=== PATIENT | male | born 1955 | race Caucasian/White ===

== ENCOUNTER 2016-12-20 13:33 | Inpatient (IN) | payer MEDICARE ==
[2016-12-20 14:09] LABS: Hematocrit 42.3 % (42.0-52.0); Hemoglobin 14.5 gm/dL (13.5-18.0); Mean Cell Volume 88.9 fl (78-100); Mean Corpuscular Hemoglobin 30.5 pg (27-31); Mean Corpuscular Hgb Conc 34.3 g/dl (32-36); Mean Platelet Volume 10.4 fl (6.0-9.5); Neutrophil # 7.4 K/mm3 (1.3-6.0); Neutrophil % 53.5 % (42-75.0); Platelet Count 211 K/mm3 (150-450); Red Blood Count 4.76 M/mm3 (4.7-6.0); Red Cell Distribution Width 12.8 % (11.5-14.0); White Blood Count 13.8 K/mm3 (4.0-10.5)
[2016-12-20] MEDS ORDERED: DIATRIZOATE MEGLU/DIATRIZO SOD 30 ML BTL PO ONE (14:10)
[2016-12-20] MEDS ORDERED: DIATRIZOATE MEGLU/DIATRIZO SOD 30 ML BTL ONE (14:11)
[2016-12-20 14:12] LABS: Urine Bilirubin Negative (NEGATIVE); Urine Blood Negative /ul (NEGATIVE); Urine Ketone Negative (NEGATIVE); Urine Nitrite Negative (NEGATIVE); Urine Protein Negative (NEGATIVE); Urine Urobilinogen Normal (NORMAL); Urine pH 6.5 pH (5.0-7.0)
--- NOTE | 2016-12-20 14:16 | ERNOTE ---
Abdominal HPI - General Chief Complaint: Abdominal Pain Time Seen by Provider: 12/20/16 13:58 Source: patient Exam Limitations: no limitations - Immun/Allergies/Home Medications Immunizatons: IMMUNIZATION HX Immunizations Up to Date Yes History of Influenza Vaccine No Hx Pneumococcal Vaccination Yes Allergies/Adverse Reactions: Allergies No Known Allergies Allergy (Unverified 12/20/16 13:51) Home Medications: HOME MEDICATIONS Aspirin [Low Dose Aspirin EC] 81 mg PO DAILY 12/20/16 [Last Taken Unknown] Gabapentin [Neurontin] 600 mg PO TID 12/20/16 [Last Taken Unknown] Insulin Aspart Prot/Insuln Asp [Novolog Mix 70/30] 50 units SQ BID 12/20/16 [ Last Taken Unknown] Levothyroxine Sodium [Synthroid] 125 mcg PO DAILY 12/20/16 [Last Taken Unknown] traMADol HCL [Ultram] 50 mg PO PRN PRN 12/20/16 [Last Taken Unknown] - History of Present Illness Narrative: Patient started to have RLQ pain four days ago. The pain has always been in the same location and has not resolved, describes it as sharp, aggravated with certain movements. He has a history of diverticulitis, has three episodes, the last one three years ago, symptoms with that were on the left side. Date (Duration): 12/17/16 Timing: constant, getting worse Quality: severe, sharpness Modifying Factors - (Worsens): Present: movement. Absent: breathing, coughing Review of Systems - Review of Systems Constitutional: Absent: recent illness, fever, chills ENT: Absent: nose congestion, sore throat Respiratory: Present: cough - slight. Absent: shortness of breath Cardiology: Absent: chest pain, palpitations Gastrointestinal/Abdominal: Present: See HPI, nausea. Absent: vomiting, diarrhea, constipation - normal BM this morning Genitourinary: Present: no symptoms reported Skin: Absent: rash Neurological: Absent: headache - Patient's Past Medical History Patient History - Medical: Diabetes Type 2 Insulin Dependent, Hypothyroidism, Other Patient History - Cardiac/Respiratory: CPAP/BiPAP Home Use, Sleep Apnea Patient History - Cancer: No Hx of Cancer Patient History - Surgical Procedures: Cholecystectomy, Colonoscopy Patient History - Other: None - Social History Living Situations: other Abuse History: No History of abuse Psych History: No pertinent hx Smoking Status: Former smoker Have you smoked in the past 12 months: No Do you dip or chew tobacco: No Alcohol Use: none Drug Use: none - Immunizations Immunizations Up to Date: Yes Hx Pneumococcal Vaccination: Yes History of Influenza Vaccine: No Physical Exam - Physical Exam General Appearance: Present: wd/wn, alert, no apparent distress, obese Respiratory: Present: no respiratory distress, normal breath sounds, no accessory muscle use, chest nontender, lungs clear Cardiovascular/Chest: Present: regular rate, rhythm, no murmur Gastrointestinal/Abdominal: Present: normal bowel sounds, nondistended, soft, tenderness, McBurney sign. Absent: Obturator sign, Psoas sign Extremity Exam: Present: no edema Neurological Exam: Present: alert, oriented, normal mood/affect Skin Exam: Present: normal color, warm/dry ED Progress - Results and Orders Patient's Lab Results:: I have reviewed the patient's lab results. - Vital Signs Patient's Vital Signs:: I have reviewed the patient's vital signs. Vital Signs: Vital Signs 12/20/16 13:42 Temperature 36.9 C Pulse Rate 69 Respiratory 14 Rate Blood Pressure 154/101 O2 Sat by Pulse 95 Oximetry - CT/Ultrasound CT/Ultrasound Narrative: CT abdomen/pelvis: normal appendix, sigmoid diverticulitis, no perforation or abscess - Progress/Reassessment Chief Complaint: Abdominal Pain Progress Note-Subjective: 12/20/16 14:14 offered pain and nausea medication, patient declined at this time 12/20/16 15:08 tolerating po, does not want pain medication 12/20/16 15:52 patient is now requesting pain medication 12/20/16 17:00 discussed results with patient, recommended admission, patient agreed 12/20/16 17:02 discussed with Joanie (NRP) okay to admit and start on cipro and flagyl Departure - Departure Clinical Impression: Sigmoid diverticulitis Uncontrolled diabetes mellitus Qualifiers: Diabetes mellitus type: type 2 Diabetes mellitus complication status: without complication Diabetes mellitus senior living insulin use: with senior living use Qualified Code(s): E11.65 - Type 2 diabetes mellitus with hyperglycemia; Z79.4 - retirement (current) use of insulin Disposition: [facility] Condition: Good
[2016-12-20 14:25] LABS: Albumin * 3.7 gm/dl (3.4-5.0); Anion Gap 12.5 mmol/L (6.8-13.8); BUN/Creatinine Ratio 14.8 (9.0-21.6); Bilirubin, Total 0.5 mg/dL (0.0-1.1); Ca. Corrected For Albumin 8.9 mg/dL (8.4-10.2); Carbon Dioxide 29.1 mmol/L (24-32.6); Potassium 3.6 mmol/L (3.4-4.6)
[2016-12-20 14:27] LABS: Urine Appearance Clear; Urine Bacteria TRACE; Urine Color Yellow; Urine RBC 0-5 /hpf (0-5); Urine WBC None Seen /hpf (0-5)
[2016-12-20 15:27] LABS: Hemoglobin A1C 9.6 % (4.00-6.0)
[2016-12-20] MEDS ORDERED: KETOROLAC TROMETHAMINE 30 MG/ML VIAL IV ONE (15:51)
[2016-12-20] MEDS ORDERED: KETOROLAC TROMETHAMINE 30 MG/ML VIAL ONE (15:52)
[2016-12-20] MEDS ORDERED: HYDROmorphone HCL 1 MG/ML DISP.SYRIN IV PRN (17:30)
[2016-12-20] MEDS ORDERED: PROMETHAZINE HCL 5 MG in DEXTROSE 5 % IN WATER 50 ML IV PRN ×2 (17:30)
[2016-12-20] MEDS ORDERED: ACETAMINOPHEN 500 MG TABLET PO PRN (17:30)
[2016-12-20] MEDS ORDERED: NORMAL SALINE 1,000 ML IV ONE (17:33)
[2016-12-20] MEDS ORDERED: CIPROFLOXACIN LACTATE/D5W 400 MG/200 ML BAG IV SCH (17:45)
[2016-12-20] MEDS: CIPROFLOXACIN LACTATE/D5W 400 MG/200 ML BAG IV SCH (21:36)
--- NOTE | 2016-12-20 23:22 | HP ---
Chief Complaint - Chief Complaint Date of Service: 12/20/16 Time of Service: 23:17 Chief Complaint: Abdominal pain, recurrent diverticulitis History of Present Illness: 61 years old male adm to the hospital from ER with reports of RLQ abdominal pain and recurrent diverticulitis. Pt stated sharp RLQ pain began 4 days ago that have gotten progressively worst. Associated s/s nausea, fever,chills and diarrhea. Pt stated he has recurrent diverticulitis over the past three years, last year he had an recurrent episode which was much worst. PMH significant for diabetes, hypothyroidism, sleep apnea and diverticulitis. In ER CT ABD: normal appendix, sigmoid diverticulitis, no perforation or abscess. WBC 13.8 and he was initiated on Cipro and Flagyl. BP have been gradually increasing continue to monitor. Plan of care discussed with pt he verbalized understanding and agree. - Patient's Past Medical History Patient History - Medical: Diabetes Type 2 Insulin Dependent, Hypothyroidism, Obesity, Other Patient History - Cardiac/Respiratory: CPAP/BiPAP Home Use, Sleep Apnea Patient History - Cancer: No Hx of Cancer Patient History - Surgical Procedures: Cholecystectomy, Colonoscopy, Other - umbilical hernia repair Patient History - Other: None - Family History Mother Family History - Medical: Family History - Cardiac/Respiratory: Myocardial Infarction Family History - Cancer: Leukemia Father Family History - Medical: , History Unknown - Social History Living Situations: home Abuse History: No History of abuse Psych History: No pertinent hx Smoking Status: Former smoker Have you smoked in the past 12 months: No Do you dip or chew tobacco: No Alcohol Use: none Drug Use: none - Immunizations Immunizations Up to Date: Yes Hx Pneumococcal Vaccination: Yes History of Influenza Vaccine: No Review Of Systems (GEN) - Review of Systems Generalized/Overall Review: Present: No Symptoms Reported EENTM: Present: No Symptoms Reported Respiratory: Present: No Symptoms Reported Cardiac: Present: No Symptoms Reported Abdominal: Present: Abdominal Pain, Diarrhea Genitourinary: Present: No Symptoms Reported Musculoskeletal: Present: No Symptoms Reported Neurological: Present: No Symptoms Reported Skin: Present: No Symptoms Reported Allergies/Adverse Reactions: Allergies Allergy/AdvReac Type Severity Reaction Status Date / Time No Known Allergies Allergy Unverified 12/20/16 13:51 Home Medications: HOME MEDICATIONS Aspirin [Low Dose Aspirin EC] 81 mg PO DAILY 12/20/16 [Last Taken Unknown] Gabapentin [Neurontin] 600 mg PO TID 12/20/16 [Last Taken Unknown] Insulin Aspart Prot/Insuln Asp [Novolog Mix 70/30] 50 units SQ BID 12/20/16 [ Last Taken Unknown] Levothyroxine Sodium [Synthroid] 125 mcg PO DAILY 12/20/16 [Last Taken Unknown] traMADol HCL [Ultram] 50 mg PO PRN PRN 12/20/16 [Last Taken Unknown] Exam - Exam Vital Signs: Vital Signs - Last Taken Temp 36.3 C L 12/20/16 21:00 Pulse 63 12/20/16 21:00 Resp 24 H 12/20/16 21:00 BP 182/81 12/20/16 21:00 Pulse Ox 95 12/20/16 21:00 Constitutional: Present: Alert, Oriented x3, Cooperative, No distress, Middle aged, Obese ENT Exam: Present: moist mucous membranes Eye Exam: bilateral eye: PERRL Neck: Present: non-tender, full range of motion Back Exam: Present: no CVA tenderness Respiratory: Present: chest non-tender, lungs clear, normal breath sounds, no respiratory distress, no accessory muscle use Cardiovascular/Chest: Present: normal peripheral pulses, regular rate, rhythm, no chest tenderness, no edema, no gallop Peripheral Pulses: dorsalis-pedis (R): 3+, dorsalis-pedis (L): 3+ Abdomen: Present: Normal bowel sounds, soft, nondistended, no rebound tenderness , no hepatospenomegaly, obese /Rectal: Present: Exam deferred Extremity: Present: normal range of motion, non-tender, normal inspection, no pedal edema Skin Exam: Present: normal color, warm/dry, no cyanosis Neurologic: Present: oriented x 3 Appearance: Present: appropriate appearance Eye contact: Present: cooperative Thoughts: Present: normal thought pattern Diagnostic Studies: Laboratory Results WBC 13.8 K/mm3 (4.0-10.5) H 12/20/16 14:05 RBC 4.76 M/mm3 (4.7-6.0) 12/20/16 14:05 Hgb 14.5 gm/dL (13.5-18.0) 12/20/16 14:05 Hct 42.3 % (42.0-52.0) 12/20/16 14:05 MCV 88.9 fl (78-100) 12/20/16 14:05 MCH 30.5 pg (27-31) 12/20/16 14:05 MCHC 34.3 g/dl (32-36) 12/20/16 14:05 RDW 12.8 % (11.5-14.0) 12/20/16 14:05 Plt Count 211 K/mm3 (150-450) 12/20/16 14:05 MPV 10.4 fl (6.0-9.5) H 12/20/16 14:05 Immature Gran % (Auto) 0.40 % (0.001-0.429) 12/20/16 14:05 Immature Gran # (Auto) 0.05 K/mm3 (0.000-0.0310) H 12/20/16 14:05 Neutrophils % 53.5 % (42-75.0) 12/20/16 14:05 Lymphocytes % 34.0 % (20-51) 12/20/16 14:05 Monocytes % 8.1 % (0.0-9) 12/20/16 14:05 Eosinophils % 3.5 % (0.0-3.0) H 12/20/16 14:05 Basophils % 0.5 % (0.0-1.0) 12/20/16 14:05 Nucleated RBC % 0.0 k/mm3 (0-1) 12/20/16 14:05 Neutrophils # 7.4 K/mm3 (1.3-6.0) H 12/20/16 14:05 Lymphocytes # 4.7 k/mm3 (1.5-3.5) H 12/20/16 14:05 Monocytes # 1.1 k/mm3 (0.0-1.0) H 12/20/16 14:05 Eosinophils # 0.5 k/mm3 (0.0-0.7) 12/20/16 14:05 Absolute Basophils 0.1 k/mm3 (0.0-0.1) 12/20/16 14:05 Sodium 139 mmol/L (132-142) 12/20/16 14:05 Plasma Sodium 140 mmol/L (130-142) 12/20/16 14:05 Potassium 3.6 mmol/L (3.4-4.6) 12/20/16 14:05 Chloride 101 mmol/L (97-106) 12/20/16 14:05 Carbon Dioxide 29.1 mmol/L (24-32.6) 12/20/16 14:05 Anion Gap 12.5 mmol/L (6.8-13.8) 12/20/16 14:05 BUN 13 mg/dL (6-23) 12/20/16 14:05 Creatinine 0.88 mg/dL (0.4-1.4) 12/20/16 14:05 Est GFR (Non-Af Amer) 94 mL/min (60-130) 12/20/16 14:05 BUN/Creatinine Ratio 14.8 (9.0-21.6) 12/20/16 14:05 Random Glucose 133 mg/dL (70-110) H 12/20/16 14:05 Mean Blood Glucose 234 mg/dL 12/20/16 15:08 Hemoglobin A1c 9.6 % (4.00-6.0) H 12/20/16 15:08 Calcium 9.0 mg/dL (7.9-10.9) 12/20/16 14:05 Calcium Adj for Albumin 8.9 mg/dL (8.4-10.2) 12/20/16 14:05 Total Bilirubin 0.5 mg/dL (0.0-1.1) 12/20/16 14:05 AST 16 U/L (0-48) 12/20/16 14:05 ALT 34 U/L (19-67) 12/20/16 14:05 Alkaline Phosphatase 96 U/L (50-170) 12/20/16 14:05 Total Protein 8.0 gm/dL (6.2-8.2) 12/20/16 14:05 Albumin 3.7 gm/dl (3.4-5.0) 12/20/16 14:05 Amylase 25 U/L (25-115) 12/20/16 14:05 Lipase 66 U/L (73-393) L 12/20/16 14:05 Urine Color Yellow 12/20/16 14:08 Urine Appearance Clear 12/20/16 14:08 Urine pH 6.5 pH (5.0-7.0) 12/20/16 14:08 Ur Specific [place] 1.010 SP.GR. (1.005-1.030) 12/20/16 14:08 Urine Protein Negative mg/dL (NEGATIVE) 12/20/16 14:08 Urine Glucose (UA) Negative mg/dL (NEGATIVE) 12/20/16 14:08 Urine Ketones Negative mg/dL (NEGATIVE) 12/20/16 14:08 Urine Blood Negative /ul (NEGATIVE) 12/20/16 14:08 Urine Nitrate Negative (NEGATIVE) 12/20/16 14:08 Urine Bilirubin Negative mg/dl (NEGATIVE) 12/20/16 14:08 Urine Urobilinogen Normal EU/dl (NORMAL) 12/20/16 14:08 Ur Leukocyte Esterase Negative /ul (NEGATIVE) 12/20/16 14:08 Urine RBC 0-5 /hpf (0-5) 12/20/16 14:08 Urine WBC None seen /hpf (0-5) 12/20/16 14:08 Ur Epithelial Cells 0-5 /hpf (0-5) 12/20/16 14:08 Urine Bacteria Trace (NONE) 12/20/16 14:08 Urine Culture Comments No culture indicated 12/20/16 14:08 CT ABD: normal appendix, sigmoid diverticulitis, no perforation or abscess. Assessment/Plan - Narrative Narrative: Sigmoid diverticulitis-pt stated he has recurrent history, report RQ pain. Seen on X-Ray ABD: normal appendix, sigmoid diverticulitis, no perforation or abscess. Continue with IV antibiotics cipro and flagyl IVF hydration Clear Liquid diet Abdominal pain Plan same as #1 Uncontrolled diabetes on adm blood glucose 133 A1C 9.6 Accu-check AC+HS and low dose SSI Resume home dose of insulin Hypothyroidism Resume home dose of medications Hypertension- possible due to sleep apnea,obesity vs pain On adm BP 152/89--->141/90---->182/81 Repeated vital signs remain elevated continue to monitor. Monitor vitals signs Q shift and PRN Give dose Norvasc tonight and continue daily. Hydralazine PRN Sleep apnea Continue with cpap . Code status: Full VTE ppx: SCD and ambulate GI ppx: Protonix Anticipate discharge home 0-2 days and follow up with PCP Time 45 minutes - Assessment/Plan (1) Sigmoid diverticulitis Problem: Acute (2) Uncontrolled diabetes mellitus Problem: Chronic Qualifiers: Diabetes mellitus type: type 2 Diabetes mellitus complication status: without complication Diabetes mellitus rat exterminator insulin use: with rat exterminator use Qualified Code(s): E11.65 - Type 2 diabetes mellitus with hyperglycemia; Z79.4 - rat exterminator (current) use of insulin (3) Hypothyroidism Problem: Chronic (4) Sleep apnea Problem: Chronic (5) Hypertension Problem: Acute Qualifiers: Hypertension type: essential hypertension Qualified Code(s): I10 - Essential (primary) hypertension
[2016-12-20] MEDS ORDERED: hydrALAZINE HCL 20 MG/ML VIAL IV PRN (23:40)
[2016-12-20] MEDS ORDERED: amLODIPine BESYLATE 5 MG TABLET PO SCH (23:55)
[2016-12-21] MEDS: PANTOPRAZOLE SODIUM 40 MG in NORMAL SALINE 100 ML IV SCH ×2 (03:07→22:52)
[2016-12-21 05:42] LABS: Hematocrit 40.2 % (42.0-52.0); Hemoglobin 13.7 gm/dL (13.5-18.0); Mean Cell Volume 89.1 fl (78-100); Mean Corpuscular Hemoglobin 30.4 pg (27-31); Mean Corpuscular Hgb Conc 34.1 g/dl (32-36); Mean Platelet Volume 10.5 fl (6.0-9.5); Neutrophil # 6.7 K/mm3 (1.3-6.0); Neutrophil % 56.5 % (42-75.0); Platelet Count 189 K/mm3 (150-450); Red Blood Count 4.51 M/mm3 (4.7-6.0); Red Cell Distribution Width 12.8 % (11.5-14.0); White Blood Count 11.8 K/mm3 (4.0-10.5)
[2016-12-21] MEDS: CIPROFLOXACIN LACTATE/D5W 400 MG/200 ML BAG IV SCH ×2 (06:04→17:54)
[2016-12-21] MEDS: LEVOTHYROXINE SODIUM 125 MCG TABLET PO SCH (07:04)
[2016-12-21] MEDS: INSULIN LISPRO 100 UNITS/ML VIAL SC SCH ×4 (07:09→20:51)
[2016-12-21] MEDS: oxyCODONE HCL/ACETAMINOPHEN 1 TAB TABLET PO PRN ×3 (07:13→19:33)
--- NOTE | 2016-12-21 07:59 | PN ---
Subjective - Date and Time Seen Date: 12/21/16 Time: 07:58 Subjective Narrative: Patient says this is 6th episode of diverticulitis. It fooled him this time because the pain was on RLQ when it was always on the LLQ. Objective - Review of Systems Generalized/Overall Review: Denies: Chills, Fever EENTM: Reports: No Symptoms Reported Respiratory: Denies: Shortness of Breath, Orthopnea Cardiac: Denies: Chest Pain, Edema, Palpitations Abdominal: Reports: Nausea, Abdominal Pain, Diarrhea. Denies: Vomiting Genitourinary Symptoms: Denies: Urgency, Frequency Musculoskeletal Complaints: Reports: Joint Pain - Vitals Vitals: Last Vital Signs Temp 36.8 C 12/21/16 07:36 Pulse 74 12/21/16 07:36 Resp 18 12/21/16 07:36 BP 148/88 12/21/16 07:36 Pulse Ox 94 12/21/16 07:36 - Abnormal Lab Findings Abnormal Lab Findings: Abnormal Lab Results 12/21/16 Range/Units 05:35 WBC 11.8 H (4.0-10.5) K/mm3 RBC 4.51 L (4.7-6.0) M/mm3 Hct 40.2 L (42.0-52.0) % MPV 10.5 H (6.0-9.5) fl Monocytes % 9.4 H (0.0-9) % Eosinophils % 4.5 H (0.0-3.0) % Neutrophils # 6.7 H (1.3-6.0) K/mm3 Monocytes # 1.1 H (0.0-1.0) k/mm3 - Exam Constitutional: Present: Alert, Oriented x3, Cooperative ENT Exam: Present: hearing grossly normal Neck: Present: supple Breasts: Present: Exam deferred Respiratory: Present: decreased breath sounds, No rales, No wheezing Cardiovascular/Chest: Present: regular rate, rhythm, no murmur, no rub Abdomen: Present: obese, tender, firm, hypoactive Extremity: Present: no calf tenderness Assessment/Plan - Problems/Diagnosis (1) Sigmoid diverticulitis Problem: Acute Narrative: WBC improved but still elevated. Will continue with IV antibiotics. recurring dicerticuotis - may need elective partial colectomy. (2) Hypertension Problem: Chronic Qualifiers: Hypertension type: essential hypertension Qualified Code(s): I10 - Essential (primary) hypertension (3) Hypothyroidism Problem: Chronic Qualifiers: Hypothyroidism type: acquired Qualified Code(s): E03.9 - Hypothyroidism, unspecified (4) Sleep apnea Problem: Chronic Qualifiers: Sleep apnea type: obstructive Qualified Code(s): G47.33 - Obstructive sleep apnea (adult) (pediatric) (5) Uncontrolled diabetes mellitus Problem: Chronic Qualifiers: Diabetes mellitus type: type 2 Diabetes mellitus complication status: without complication Diabetes mellitus longterm insulin use: with greenhouse grower use Qualified Code(s): E11.65 - Type 2 diabetes mellitus with hyperglycemia; Z79.4 - reliability technician (current) use of insulin
[2016-12-21] MEDS: GABAPENTIN 600 MG TABLET PO SCH ×3 (08:33→16:35)
[2016-12-21] MEDS: ASPIRIN 81 MG TABLET.DR PO SCH (08:34)
[2016-12-21] MEDS: amLODIPine BESYLATE 5 MG TABLET PO SCH (08:34)
[2016-12-21] MEDS: INSULIN ASPART PROT/INSULN ASP 100 UNITS/ML VIAL SC SCH ×2 (08:35→20:53)
[2016-12-21] MEDS: NORMAL SALINE 1,000 ML IV PRN ×2 (11:06→21:24)
[2016-12-21] MEDS: ENOXAPARIN SODIUM 40 MG/0.4 ML SYRG SC SCH (16:34)
[2016-12-21] MEDS ORDERED: ACETAMINOPHEN 325 MG TABLET ONE (23:03)
[2016-12-22] MEDS: oxyCODONE HCL/ACETAMINOPHEN 1 TAB TABLET PO PRN (01:20)
[2016-12-22] MEDS: ONDANSETRON HCL/PF 2 MG/ML VIAL IV PRN (05:51)
[2016-12-22] MEDS: NORMAL SALINE 1,000 ML IV PRN ×2 (06:54→20:31)
[2016-12-22] MEDS: LEVOTHYROXINE SODIUM 125 MCG TABLET PO SCH (06:56)
[2016-12-22] MEDS: CIPROFLOXACIN LACTATE/D5W 400 MG/200 ML BAG IV SCH ×2 (06:57→19:11)
[2016-12-22] MEDS: INSULIN LISPRO 100 UNITS/ML VIAL SC SCH ×4 (07:01→22:53)
--- NOTE | 2016-12-22 08:26 | PN ---
Subjective - Date and Time Seen Date: 12/22/16 Time: 08:25 Subjective Narrative: Patient had vomiting this morning with greenish fluid just befort his breakfast.. Objective - Review of Systems Generalized/Overall Review: Denies: Chills, Fever EENTM: Reports: No Symptoms Reported Respiratory: Denies: Cough, Shortness of Breath Cardiac: Denies: Chest Pain, Palpitations Abdominal: Reports: Nausea, Vomiting. Denies: Abdominal Pain Genitourinary Symptoms: Denies: Urgency, Frequency - Vitals Vitals: Last Vital Signs Temp 36.6 C 12/22/16 06:40 Pulse 58 L 12/22/16 06:40 Resp 18 12/22/16 06:40 BP 146/78 12/22/16 06:40 Pulse Ox 96 12/22/16 06:40 - Exam Constitutional: Present: Alert, Oriented x3, Cooperative ENT Exam: Present: hearing grossly normal Neck: Present: supple Breasts: Present: Exam deferred Respiratory: Present: normal breath sounds, No wheezing, plerual rub Cardiovascular/Chest: Present: regular rate, rhythm, no JVD, no murmur Abdomen: Present: soft, obese, tender, hypoactive Extremity: Present: no pedal edema, no calf tenderness Assessment/Plan - Problems/Diagnosis (1) Sigmoid diverticulitis Problem: Acute Narrative: continue with IV antibiotics (2) Hypertension Problem: Chronic Qualifiers: Hypertension type: essential hypertension Qualified Code(s): I10 - Essential (primary) hypertension (3) Hypothyroidism Problem: Chronic Qualifiers: Hypothyroidism type: acquired Qualified Code(s): E03.9 - Hypothyroidism, unspecified (4) Sleep apnea Problem: Chronic Qualifiers: Sleep apnea type: obstructive Qualified Code(s): G47.33 - Obstructive sleep apnea (adult) (pediatric) (5) Uncontrolled diabetes mellitus Problem: Chronic Qualifiers: Diabetes mellitus type: type 2 Diabetes mellitus complication status: without complication Diabetes mellitus superintendent terminal insulin use: with superintendent terminal use Qualified Code(s): E11.65 - Type 2 diabetes mellitus with hyperglycemia; Z79.4 - terminal system operator (current) use of insulin (6) Nausea & vomiting Problem: Acute Qualifiers: Vomiting type: unspecified Vomiting Intractability: non-intractable Qualified Code(s): R11.2 - Nausea with vomiting, unspecified Narrative: will rpeat flat/upright plate of abdomen. continue with antiemetics. will do labs today.no CARLSON/blurring of vision.
[2016-12-22] MEDS: ASPIRIN 81 MG TABLET.DR PO SCH (09:08)
[2016-12-22] MEDS: amLODIPine BESYLATE 5 MG TABLET PO SCH (09:09)
[2016-12-22] MEDS: INSULIN ASPART PROT/INSULN ASP 100 UNITS/ML VIAL SC SCH ×3 (09:09→22:56)
[2016-12-22] MEDS: GABAPENTIN 600 MG TABLET PO SCH ×3 (09:09→17:22)
[2016-12-22 09:14] LABS: Hematocrit 38.2 % (42.0-52.0); Hemoglobin 13.1 gm/dL (13.5-18.0); Mean Cell Volume 89.3 fl (78-100); Mean Corpuscular Hemoglobin 30.6 pg (27-31); Mean Corpuscular Hgb Conc 34.3 g/dl (32-36); Mean Platelet Volume 10.1 fl (6.0-9.5); Neutrophil # 6.6 K/mm3 (1.3-6.0); Neutrophil % 65.6 % (42-75.0); Platelet Count 181 K/mm3 (150-450); Red Blood Count 4.28 M/mm3 (4.7-6.0); Red Cell Distribution Width 12.8 % (11.5-14.0); White Blood Count 10.1 K/mm3 (4.0-10.5)
[2016-12-22 09:36] LABS: Albumin * 3.2 gm/dl (3.4-5.0); BUN/Creatinine Ratio 9.3 (9.0-21.6); Bilirubin, Total 0.4 mg/dL (0.0-1.1); Ca. Corrected For Albumin 8.6 mg/dL (8.4-10.2); Calcium * 8.3 mg/dL (7.9-10.9); Carbon Dioxide 29.3 mmol/L (24-32.6); Potassium 3.3 mmol/L (3.4-4.6)
[2016-12-22] MEDS: ENOXAPARIN SODIUM 40 MG/0.4 ML SYRG SC SCH (17:21)
[2016-12-22] MEDS ORDERED: SODIUM CHLORIDE 500 DROP BTL NS PRN (20:03)
[2016-12-22] MEDS: PANTOPRAZOLE SODIUM 40 MG in NORMAL SALINE 100 ML IV SCH (22:58)
[2016-12-23] MEDS ORDERED: SODIUM CHLORIDE 45 SPRAY BTL NS PRN (01:54)
[2016-12-23 05:44] LABS: Anion Gap 8.8 mmol/L (6.8-13.8); BUN/Creatinine Ratio 6.2 (9.0-21.6); Calcium * 8.6 mg/dL (7.9-10.9); Carbon Dioxide 31.2 mmol/L (24-32.6); Estimated Creat Clear 91.8
[2016-12-23] MEDS: oxyCODONE HCL/ACETAMINOPHEN 1 TAB TABLET PO PRN (06:00)
[2016-12-23] MEDS ORDERED: POTASSIUM CHLORIDE 20 MEQ TABLET.SA PO ONE ×2 (06:00→14:00)
[2016-12-23] MEDS: CIPROFLOXACIN LACTATE/D5W 400 MG/200 ML BAG IV SCH ×2 (06:01→18:21)
[2016-12-23] MEDS: LEVOTHYROXINE SODIUM 125 MCG TABLET PO SCH (06:21)
[2016-12-23] MEDS: ONDANSETRON HCL/PF 2 MG/ML VIAL IV PRN (06:21)
[2016-12-23] MEDS: INSULIN LISPRO 100 UNITS/ML VIAL SC SCH ×4 (07:30→22:57)
[2016-12-23] MEDS: NORMAL SALINE 1,000 ML IV PRN (08:11)
--- NOTE | 2016-12-23 09:27 | PN ---
Subjective - Date and Time Seen Date: 12/23/16 Time: 09:24 Subjective Narrative: Patient has had N/V anymore. WBC is back to normal. Objective - Review of Systems Generalized/Overall Review: Denies: Chills EENTM: Reports: No Symptoms Reported Respiratory: Denies: Cough, Shortness of Breath Cardiac: Denies: Chest Pain, Edema, Palpitations Abdominal: Denies: Nausea, Vomiting Genitourinary Symptoms: Denies: Urgency, Frequency - Vitals Vitals: Last Vital Signs Temp 36.8 C 12/23/16 07:13 Pulse 64 12/23/16 07:13 Resp 20 12/23/16 07:13 BP 174/84 12/23/16 07:13 Pulse Ox 96 12/23/16 07:13 - Abnormal Lab Findings Abnormal Lab Findings: Abnormal Lab Results 12/22/16 12/23/16 Range/Units 09:06 04:50 Potassium 3.3 L 3.0 L (3.4-4.6) mmol/L BUN 5 L (6-23) mg/dL BUN/Creatinine Ratio 6.2 L (9.0-21.6) Random Glucose 202 H D (70-110) mg/dL Albumin 3.2 L (3.4-5.0) gm/dl - Exam Constitutional: Present: Alert, Oriented x3, Cooperative ENT Exam: Present: hearing grossly normal Neck: Present: supple Breasts: Present: Exam deferred Respiratory: Present: decreased breath sounds, No rales, No wheezing Cardiovascular/Chest: Present: regular rate, rhythm, no JVD, no murmur Abdomen: Present: soft, nontender, obese, hypoactive Extremity: Present: no calf tenderness, pedal edema Assessment/Plan - Problems/Diagnosis (1) Sigmoid diverticulitis Problem: Acute Narrative: WBC back to normal today . will advance to full liquids. will change to oral antibiotics in the morning and possible discharge. (2) Hypertension Problem: Chronic Qualifiers: Hypertension type: essential hypertension Qualified Code(s): I10 - Essential (primary) hypertension (3) Hypothyroidism Problem: Chronic Qualifiers: Hypothyroidism type: acquired Qualified Code(s): E03.9 - Hypothyroidism, unspecified (4) Sleep apnea Problem: Chronic Qualifiers: Sleep apnea type: obstructive Qualified Code(s): G47.33 - Obstructive sleep apnea (adult) (pediatric) (5) Uncontrolled diabetes mellitus Problem: Chronic Qualifiers: Diabetes mellitus type: type 2 Diabetes mellitus complication status: without complication Diabetes mellitus buttermaker insulin use: with skilled nursing use Qualified Code(s): E11.65 - Type 2 diabetes mellitus with hyperglycemia; Z79.4 - terminal supervisor (current) use of insulin Narrative: BS is 98 this am (6) Nausea & vomiting Problem: Resolved Qualifiers: Vomiting type: unspecified Vomiting Intractability: non-intractable Qualified Code(s): R11.2 - Nausea with vomiting, unspecified
[2016-12-23] MEDS: amLODIPine BESYLATE 5 MG TABLET PO SCH (09:36)
[2016-12-23] MEDS: GABAPENTIN 600 MG TABLET PO SCH ×3 (09:36→17:09)
[2016-12-23] MEDS: ASPIRIN 81 MG TABLET.DR PO SCH (09:36)
[2016-12-23] MEDS: INSULIN ASPART PROT/INSULN ASP 100 UNITS/ML VIAL SC SCH ×2 (09:36→22:58)
[2016-12-23] MEDS: ENOXAPARIN SODIUM 40 MG/0.4 ML SYRG SC SCH (17:04)
[2016-12-23] MEDS: PANTOPRAZOLE SODIUM 40 MG in NORMAL SALINE 100 ML IV SCH (23:32)
[2016-12-24] MEDS: CIPROFLOXACIN LACTATE/D5W 400 MG/200 ML BAG IV SCH (06:49)
[2016-12-24] MEDS: INSULIN LISPRO 100 UNITS/ML VIAL SC SCH ×2 (06:51→11:59)
[2016-12-24] MEDS: LEVOTHYROXINE SODIUM 125 MCG TABLET PO SCH (06:51)
[2016-12-24] MEDS: amLODIPine BESYLATE 5 MG TABLET PO SCH (09:21)
[2016-12-24] MEDS: ASPIRIN 81 MG TABLET.DR PO SCH (09:21)
[2016-12-24] MEDS: GABAPENTIN 600 MG TABLET PO SCH ×2 (09:21→11:59)
[2016-12-24] MEDS: INSULIN ASPART PROT/INSULN ASP 100 UNITS/ML VIAL SC SCH (09:40)
[2016-12-24 10:30] VITALS: BP 144/78
--- NOTE | 2016-12-24 13:14 | DS ---
(1) Sigmoid diverticulitis Problem: Acute (2) Hypertension Problem: Chronic Qualifiers: Hypertension type: essential hypertension Qualified Code(s): I10 - Essential (primary) hypertension (3) Hypothyroidism Problem: Chronic Qualifiers: Hypothyroidism type: acquired Qualified Code(s): E03.9 - Hypothyroidism, unspecified (4) Sleep apnea Problem: Chronic Qualifiers: Sleep apnea type: obstructive Qualified Code(s): G47.33 - Obstructive sleep apnea (adult) (pediatric) (5) Uncontrolled diabetes mellitus Problem: Chronic Qualifiers: Diabetes mellitus type: type 2 Diabetes mellitus complication status: without complication Diabetes mellitus snf insulin use: with long term care pharmacist use Qualified Code(s): E11.65 - Type 2 diabetes mellitus with hyperglycemia; Z79.4 - rat exterminator (current) use of insulin (6) Nausea & vomiting Problem: Resolved Qualifiers: Vomiting type: unspecified Vomiting Intractability: non-intractable Qualified Code(s): R11.2 - Nausea with vomiting, unspecified Description of Stay: Pedro is a 61 year old male who presented to the er with c/o abdominal pain, nausea, fever, chills, diarrhea. Ct of the abdomen and pelvis done 12/20/16 showed sigmoid diverticulitis with no perforation and no abscess. pt was admitted to the floor for further workup and started on iv cipro and iv flagyl. overnight and on 12/21/16 the patient improved. on 12/22/16, the patient had a small amount of vomiting with breakfast. repeat abdominal xrays on 12/22/16 showed no acute changes. on 12/23/16 the patient's n/v was gone, wbc normal and the patient's diet was advanced. On 12/24/16, patient had no abdominal pain, no n/v/d and was able to be discharge with oral cipro and oral flagyl. follow up appts with pcp and general surgery were made. Procedures Performed: none Discharge Disposition: Home self care Disposition: Home self-care Condition: Undetermined Discharge Activity: Activity as tolerated Discharge Diet: General/regular food Problem Oriented Discharge Instructions to Patient/Family: Diverticulitis, Easy -to-Read Additional Patient Instructions (free text): Drink plenty of water, advance diet as tolerate. New medications: Flagyl and Ciprofloxacin. Follow up with Dr. Davila in 1-2 weeks on 01/09 at 10:45am. We will make you a consultation with Dr. Posada in late January or after at his first available appointment, it will be on 02/12 at 8:30am for paper work appt. is 9:00. Prescriptions (Any new or edited meds): Ciprofloxacin HCl [Cipro] 500 mg PO BID #14 tab metroNIDAZOLE [Flagyl] 500 mg PO Q8H #21 tablet traMADol HCL [Ultram] 50 mg PO Q6H PRN #30 tablet PRN Reason: Pain Complete Home Medications List: Complete Home Medication List: Aspirin [Low Dose Aspirin EC] 81 mg PO DAILY 12/20/16 Gabapentin [Neurontin] 600 mg PO TID 12/20/16 Insulin Aspart Prot/Insuln Asp [Novolog Mix 70/30] 50 units SQ BID 12/20/16 Levothyroxine Sodium [Synthroid] 125 mcg PO DAILY 12/20/16 Ciprofloxacin HCl [Cipro] 500 mg PO BID #14 tab 12/24/16 metroNIDAZOLE [Flagyl] 500 mg PO Q8H #21 tablet 12/24/16 traMADol HCL [Ultram] 50 mg PO Q6H PRN #30 tablet 12/24/16
== END 2016-12-24 14:32 | disposition home or self-care (01) | DRG 392 ==
LOC: ER 13:33 → MS 17:24 → OBSVTOIN 12-21 08:17
PROVIDERS: ADMIT Nurse Practitioner Critical Care Medicine; ATTEND Internal Medicine
DX: K57.32 Diverticulitis of large intestine without perforation or abscess without bleeding (principal); E11.65 Type 2 diabetes mellitus with hyperglycemia; I10 Essential (primary) hypertension; E03.9 Hypothyroidism, unspecified; R11.2 Nausea with vomiting, unspecified; Z79.4 Long term (current) use of insulin; Z79.82 Long term (current) use of aspirin
CPT/HCPCS: 36415; 74020; 74177; 80048; 80053; 81001; 82150; 83036; 83690; 85025; 94660; 96374; 99284; G0378

== ENCOUNTER 2017-03-11 08:28 | Emergency (ER) | payer MEDICARE ==
--- NOTE | 2017-03-11 08:52 | ERNOTE ---
Abdominal HPI - General Time Seen by Provider: 03/11/17 08:32 Source: patient Exam Limitations: no limitations - Immun/Allergies/Home Medications Immunizatons: IMMUNIZATION HX Immunizations Up to Date Yes History of Influenza Vaccine No Hx Pneumococcal Vaccination Yes Allergies/Adverse Reactions: Allergies No Known Allergies Allergy (Verified 03/11/17 08:40) Home Medications: HOME MEDICATIONS Aspirin [Low Dose Aspirin EC] 81 mg PO DAILY 12/20/16 [Last Taken Unknown] Gabapentin [Neurontin] 600 mg PO TID 12/20/16 [Last Taken Unknown] Insulin Aspart Prot/Insuln Asp [Novolog Mix 70/30] 50 units SQ BID 12/20/16 [ Last Taken Unknown] Levothyroxine Sodium [Synthroid] 125 mcg PO DAILY 12/20/16 [Last Taken Unknown] Ciprofloxacin HCl [Cipro] 500 mg PO BID #14 tab 03/11/17 [Last Taken Unknown] metroNIDAZOLE [Flagyl] 500 mg PO Q8H #21 tablet 03/11/17 [Last Taken Unknown] traMADol HCL [Ultram] 50 mg PO Q6H PRN #30 tablet 03/11/17 [Last Taken Unknown] - History of Present Illness Narrative: Patient has a history of diverticulitis, had a total of four episodes.Most the times the pain has been on the left.With the last episode he had RLQ pain, CT showed sigmoid diverticulitis and he was admitted for IV antibiotics. He started with left sided abdominal pain two days ago. The pain waxes and wanes but never resolves, is severe right now, nausea, no vomiting, normal bowel movements. Date (Duration): 03/09/17 Quality: severe, aching Modifying Factors - (Worsens): Absent: breathing, coughing, movement Review of Systems - Review of Systems Constitutional: Present: chills. Absent: fever ENT: Absent: nose congestion, sore throat Respiratory: Absent: shortness of breath, cough Cardiology: Absent: chest pain Gastrointestinal/Abdominal: Present: See HPI, nausea, abdominal pain. Absent: vomiting, diarrhea, constipation Genitourinary: Present: no symptoms reported Musculoskeletal: Present: back pain - pain radiates to left lower back Skin: Absent: rash Neurological: Absent: headache, weakness, numbness - Patient's Past Medical History Patient History - Medical: Diabetes Type 2 Insulin Dependent, Hypothyroidism, Obesity, Other Patient History - Cardiac/Respiratory: Hypertension, CPAP/BiPAP Home Use, Sleep Apnea Patient History - Cancer: No Hx of Cancer Patient History - Surgical Procedures: Cholecystectomy, Colonoscopy, Other - umbilical hernia repair Patient History - Other: None - Family History Mother Family History - Medical: Family History - Cardiac/Respiratory: Myocardial Infarction Family History - Cancer: Leukemia Father Family History - Medical: , History Unknown - Social History Living Situations: home Abuse History: No History of abuse Psych History: No pertinent hx Alcohol Use: none Drug Use: none - Immunizations Immunizations Up to Date: Yes Hx Pneumococcal Vaccination: Yes History of Influenza Vaccine: No Physical Exam - Physical Exam General Appearance: Present: wd/wn, alert, no apparent distress Ears, Nose, Throat: Present: normal pharynx Respiratory: Present: no respiratory distress, normal breath sounds, no accessory muscle use, lungs clear Cardiovascular/Chest: Present: regular rate, rhythm, no murmur Gastrointestinal/Abdominal: Present: normal bowel sounds, nondistended, soft, tenderness - left midabdomen and LLQ. Absent: guarding, rebound Neurological Exam: Present: alert, oriented, normal mood/affect Skin Exam: Present: normal color, warm/dry ED Progress - Results and Orders Patient's Lab Results:: I have reviewed the patient's lab results. - Vital Signs Patient's Vital Signs:: I have reviewed the patient's vital signs. - X-Ray X-Ray #1 X-Ray: abdomen - stool retention Interpretation: Reviewed by me - Progress/Reassessment Progress Note-Subjective: 03/11/17 08:51 patient rates pain as severe but declines offer of pain meds at this time, wants to wait for his tramadol to start working 03/11/17 10:27 discussed test results and plan, as patient has normal WBC and no peritoneal signs will try oral antibiotics and liquid diet, hold off on CT unless patient' s pain gets worse of doesn't improve Departure - Departure Clinical Impression: Sigmoid diverticulitis Disposition: Home self-care Condition: Good Instructions: Diverticulitis, [id number] Additional Instructions: stay on a liquid diet till your pain has improved Referrals: Paige Davila MD [Primary Care Provider] - 03/15/17 2:30 pm Prescriptions: Ciprofloxacin HCl [Cipro] 500 mg PO BID #14 tab metroNIDAZOLE [Flagyl] 500 mg PO Q8H #21 tablet traMADol HCL [Ultram] 50 mg PO Q6H PRN #30 tablet PRN Reason: Pain
[2017-03-11 08:56] LABS: Urine Bilirubin Negative (NEGATIVE); Urine Blood Negative /ul (NEGATIVE); Urine Ketone Negative (NEGATIVE); Urine Nitrite Negative (NEGATIVE); Urine Protein Negative (NEGATIVE); Urine Urobilinogen Normal (NORMAL); Urine pH 5.5 pH (5.0-7.0)
[2017-03-11 09:06] LABS: Hematocrit 41.1 % (42.0-52.0); Hemoglobin 13.9 gm/dL (13.5-18.0); Mean Cell Volume 90.1 fl (78-100); Mean Corpuscular Hemoglobin 30.5 pg (27-31); Mean Corpuscular Hgb Conc 33.8 g/dl (32-36); Mean Platelet Volume 10.6 fl (6.0-9.5); Neutrophil # 3.4 K/mm3 (1.3-6.0); Neutrophil % 36.7 % (42-75.0); Platelet Count 189 K/mm3 (150-450); Red Blood Count 4.56 M/mm3 (4.7-6.0); Red Cell Distribution Width 13.1 % (11.5-14.0); White Blood Count 9.3 K/mm3 (4.0-10.5)
[2017-03-11 09:07] LABS: Urine Appearance Clear; Urine Bacteria 1+; Urine Color Yellow; Urine RBC None Seen /hpf (0-5); Urine WBC 0-5 /hpf (0-5)
[2017-03-11 09:18] LABS: Albumin * 3.5 gm/dl (3.4-5.0); Anion Gap 10.7 mmol/L (6.8-13.8); BUN/Creatinine Ratio 12.5 (9.0-21.6); Bilirubin, Total 0.4 mg/dL (0.0-1.1); Ca. Corrected For Albumin 8.9 mg/dL (8.4-10.2); Calcium * 8.8 mg/dL (7.9-10.9); Carbon Dioxide 30.4 mmol/L (24-32.6); Potassium 4.1 mmol/L (3.4-4.6)
[2017-03-11] MEDS ORDERED: CIPROFLOXACIN HCL 250 MG TABLET PO ONE (10:29)
[2017-03-11] MEDS ORDERED: metroNIDAZOLE 250 MG TABLET PO ONE (10:29)
[2017-03-11] MEDS ORDERED: metroNIDAZOLE 250 MG TABLET ONE (10:31)
[2017-03-11] MEDS ORDERED: CIPROFLOXACIN HCL 250 MG TABLET ONE (10:31)
[2017-03-11 10:35] VITALS: BP 152/84
== END 2017-03-11 10:41 | disposition home or self-care (01) ==
LOC: ER 08:28
DX: K57.32 Diverticulitis of large intestine without perforation or abscess without bleeding (principal); E11.9 Type 2 diabetes mellitus without complications; Z79.4 Long term (current) use of insulin; E03.9 Hypothyroidism, unspecified

== ENCOUNTER 2017-03-13 04:47 | Observation (INO) | payer MEDICARE ==
--- NOTE | 2017-03-13 05:51 | ERNOTE ---
Abdominal HPI - General Chief Complaint: Abdominal Pain Time Seen by Provider: 03/13/17 05:38 Source: patient Exam Limitations: no limitations - Immun/Allergies/Home Medications Immunizatons: IMMUNIZATION HX Immunizations Up to Date No History of Influenza Vaccine No Hx Pneumococcal Vaccination Yes Allergies/Adverse Reactions: Allergies No Known Allergies Allergy (Verified 03/11/17 08:40) Home Medications: HOME MEDICATIONS Aspirin [Low Dose Aspirin EC] 81 mg PO DAILY 12/20/16 [Last Taken Unknown] Gabapentin [Neurontin] 600 mg PO TID 12/20/16 [Last Taken Unknown] Insulin Aspart Prot/Insuln Asp [Novolog Mix 70/30] 50 units SQ BID 12/20/16 [ Last Taken Unknown] Levothyroxine Sodium [Synthroid] 125 mcg PO DAILY 12/20/16 [Last Taken Unknown] Ciprofloxacin HCl [Cipro] 500 mg PO BID #14 tab 03/11/17 [Last Taken Unknown] metroNIDAZOLE [Flagyl] 500 mg PO Q8H #21 tablet 03/11/17 [Last Taken Unknown] traMADol HCL [Ultram] 50 mg PO Q6H PRN #30 tablet 03/11/17 [Last Taken Unknown] Lisinopril [Zestril] 10 mg PO BID 03/13/17 [Last Taken Unknown] - History of Present Illness Narrative: Pt has had LLQ abdominal pain for about a week. He was seen in this ED 2 days ago and placed on cipro and flagyl, he has continued to worsen. Yesterday he decided to go on a fast which involves only eating Jell-o. This has not helped either. Timing: getting worse Quality: severe, cramping, dullness Activities at Onset: none Modifying Factors - (Worsens): Present: movement Associated Symptoms: Present: diaphoresis, nausea, loss of appetite Prior Abdominal Problems: Present: similar symptoms - diverticulitis and pancreatitis Review of Systems - Review of Systems Constitutional: Present: chills, fatigue EYE: Present: no symptoms reported ENT: Present: nasal drainage - chronic Respiratory: Absent: shortness of breath, cough Cardiology: Absent: chest pain Gastrointestinal/Abdominal: Present: See HPI, nausea. Absent: vomiting, constipation Genitourinary: Absent: frequency, pain Musculoskeletal: Present: no symptoms reported Skin: Present: no symptoms reported Neurological: Present: no symptoms reported Endocrine: Present: no symptoms reported Hematologic/Lymphatic: Present: no symptoms reported Psych: Present: no symptoms reported - Patient's Past Medical History Patient History - Medical: Diabetes Type 2 Insulin Dependent, Hypothyroidism, Obesity, Other Patient History - Cardiac/Respiratory: Hypertension, CPAP/BiPAP Home Use, Sleep Apnea Patient History - Cancer: No Hx of Cancer Patient History - Surgical Procedures: Cholecystectomy, Colonoscopy, Other Patient History - Other: None - Family History Mother Family History - Medical: Family History - Cardiac/Respiratory: Myocardial Infarction Family History - Cancer: Leukemia Father Family History - Medical: , History Unknown - Social History Living Situations: home Abuse History: No History of abuse Psych History: No pertinent hx Smoking Status: Former smoker Have you smoked in the past 12 months: No Do you dip or chew tobacco: No Alcohol Use: none Drug Use: none - Immunizations Immunizations Up to Date: No Hx Pneumococcal Vaccination: Yes History of Influenza Vaccine: No Physical Exam - Physical Exam General Appearance: Present: wd/wn, alert, mild distress Ears, Nose, Throat: Present: normal ENT inspection, nasal congestion Neck: Present: normal inspection, nontender, supple Respiratory: Present: no respiratory distress, normal breath sounds, lungs clear Cardiovascular/Chest: Present: regular rate, rhythm, no murmur, normal peripheral pulses Gastrointestinal/Abdominal: Present: normal bowel sounds, tenderness - LLQ and LUQ Back Exam: Present: CVA tenderness (L). Absent: CVA tenderness (R) Extremity Exam: Present: normal range of motion, no edema Neurological Exam: Present: alert, oriented, normal mood/affect, no motor/ sensory deficits Skin Exam: Present: normal color, warm/dry ED Progress - Vital Signs Vital Signs: Vital Signs 03/13/17 04:52 Temperature 36.3 C L Pulse Rate 62 Respiratory 158 H Rate Blood Pressure 158/87 O2 Sat by Pulse 96 Oximetry - Progress/Reassessment Chief Complaint: Abdominal Pain Progress:: Improved Progress Note-Subjective: 03/13/17 08:01 pt became angry due to a psychiatric patient talking loudly. He came out into the henderson asking who was yelling. I told him it was not any of his business who it was but that we would move him to the other side of the ED so he could not hear the patient. He was upset because I was short with him. Pt talked to case management. I did apologize to him initially but he was upset and did not recognize that apology. I did return to the room before my shift was over and apologize again. Pt accepted and apologized as well. - Transfer of Care Physician Sign Out: Hua Ellis Receiving Physician: Kari Marvin Pending Results: CT/MRI results Expected Disposition: Admit Departure - Departure Clinical Impression: Sigmoid diverticulitis Condition: Good Referrals: Raf Martell MD [Primary Care Provider] -
[2017-03-13 06:12] LABS: Urine Bilirubin Negative (NEGATIVE); Urine Blood Negative /ul (NEGATIVE); Urine Ketone Negative (NEGATIVE); Urine Nitrite Negative (NEGATIVE); Urine Protein Negative (NEGATIVE); Urine Urobilinogen Normal (NORMAL)
[2017-03-13 06:21] LABS: Urine Appearance Clear; Urine Bacteria None Seen; Urine Color Yellow; Urine RBC None Seen /hpf (0-5); Urine WBC None Seen /hpf (0-5)
[2017-03-13 06:23] LABS: Hematocrit 40.1 % (42.0-52.0); Hemoglobin 13.7 gm/dL (13.5-18.0); Mean Cell Volume 89.3 fl (78-100); Mean Corpuscular Hemoglobin 30.5 pg (27-31); Mean Corpuscular Hgb Conc 34.2 g/dl (32-36); Mean Platelet Volume 10.5 fl (6.0-9.5); Neutrophil # 4.4 K/mm3 (1.3-6.0); Neutrophil % 48.1 % (42-75.0); Platelet Count 187 K/mm3 (150-450); Red Blood Count 4.49 M/mm3 (4.7-6.0); Red Cell Distribution Width 12.9 % (11.5-14.0); White Blood Count 9.1 K/mm3 (4.0-10.5)
[2017-03-13] MEDS ORDERED: DIATRIZOATE MEGLU/DIATRIZO SOD 30 ML BTL PO ONE (06:33)
[2017-03-13] MEDS ORDERED: DIATRIZOATE MEGLU/DIATRIZO SOD 30 ML BTL ONE (06:34)
[2017-03-13 06:41] LABS: Albumin * 3.6 gm/dl (3.4-5.0); BUN/Creatinine Ratio 12.9 (9.0-21.6); Bilirubin, Total 0.3 mg/dL (0.0-1.1); Ca. Corrected For Albumin 9.3 mg/dL (8.4-10.2); Calcium * 9.3 mg/dL (7.9-10.9); Total Protein 7.2 gm/dL (6.2-8.2)
[2017-03-13] MEDS ORDERED: ONDANSETRON HCL/PF 2 MG/ML VIAL IV ONE (08:23)
[2017-03-13] MEDS ORDERED: HYDROmorphone HCL 1 MG/ML DISP.SYRIN IV ONE (08:23)
[2017-03-13] MEDS ORDERED: HYDROmorphone HCL 1 MG/ML DISP.SYRIN ONE (08:24)
[2017-03-13] MEDS ORDERED: ONDANSETRON HCL/PF 2 MG/ML VIAL ONE (08:24)
[2017-03-13] MEDS ORDERED: CIPROFLOXACIN LACTATE/D5W 400 MG/200 ML BAG IV SCH (09:45)
[2017-03-13] MEDS ORDERED: metroNIDAZOLE/SODIUM CHLORIDE 500 MG/100 ML BAG IV SCH (09:45)
[2017-03-13] MEDS: DEXTROSE 5%-NORMAL SALINE 1,000 ML IV PRN ×2 (14:17→22:45)
--- NOTE | 2017-03-13 14:32 | HP ---
Chief Complaint - Chief Complaint Date of Service: 03/13/17 Time of Service: 13:55 Chief Complaint: abdominal pain for the last one week , worse for the 2-3 days. History of Present Illness: Patient is a 62-year-old WM with a H/O T2DM, HTN, HLD, neuropathy, hypothyroidism, obesity with a BMI of 38.0, LUCI with CPAP who came to the ER because of LLQ pain for the 7-10 days. He was in the ER on 03/11/2017 and was prescribed ciprofloxacin and metronidazole. Patient felt there was no improvement in his pain which prompted him to come today. CT revealed minimal stranding of the fat adjacent to the sigmoid colon affected by diverticular outpouchings. WBC 9.1, lactic acid 0.9, CRP 1.9. Patient was admitted into observation for overnight antibiotics. - Patient's Past Medical History Additional info: PAST MEDICAL HISTORY: Hypertension, hyperlipidemia, T2 DM with neuropathy, hypothyroidism, obesity with BMI 38.0. LUCI with auto CPAP 6-12 cm H20, diverticulosis, seasonal allergies, chronic low back pain. Patient History - Cancer: No Hx of Cancer Patient History - Surgical Procedures: Other Additional Info: PAST SURGICAL HISTORY: Plate in right wrist 1986; Lap Cholecystectomy 2010; colonoscopy with biopsies 2012. Patient History - Other: None - Family History Mother Family History - Medical: Family History - Cardiac/Respiratory: Myocardial Infarction Family History - Cancer: Leukemia Father Family History - Medical: , History Unknown - Social History Living Situations: spouse Abuse History: No History of abuse Psych History: No pertinent hx Smoking Status: Never smoker Have you smoked in the past 12 months: No Do you dip or chew tobacco: No Patient requests Smoking Cessation Consult: No Initiate information on Smoking Cessation: No Alcohol Use: none Drug Use: none - Immunizations Immunizations Up to Date: No Hx Pneumococcal Vaccination: Yes History of Influenza Vaccine: No Review Of Systems (GEN) - Review of Systems Abdominal: Present: Nausea, Abdominal Pain Musculoskeletal: Present: Back Pain Allergies/Adverse Reactions: Allergies Allergy/AdvReac Type Severity Reaction Status Date / Time No Known Allergies Allergy Verified 03/13/17 10:49 Home Medications: HOME MEDICATIONS Aspirin [Low Dose Aspirin EC] 81 mg PO DAILY 12/20/16 [Last Taken 03/12/17 09:00 ] Gabapentin [Neurontin] 600 mg PO TID 12/20/16 [Last Taken 03/12/17 21:00] Insulin Aspart Prot/Insuln Asp [Novolog Mix 70/30] 50 units SQ BID 12/20/16 [ Last Taken 03/12/17 21:00] Levothyroxine Sodium [Synthroid] 125 mcg PO DAILY 12/20/16 [Last Taken 03/12/17 09:00] Ciprofloxacin HCl [Cipro] 500 mg PO BID #14 tab 03/11/17 [Last Taken 03/12/17 21 :00] metroNIDAZOLE [Flagyl] 500 mg PO Q8H #21 tablet 03/11/17 [Last Taken 03/12/17 21 :00] traMADol HCL [Ultram] 50 mg PO Q6H PRN #30 tablet 03/11/17 [Last Taken 03/13/17 0300] Lisinopril [Zestril] 10 mg PO BID 03/13/17 [Last Taken 03/12/17 21:00] Exam - Exam Vital Signs: Vital Signs - Last Taken Temp 36.6 C 03/13/17 11:00 Pulse 56 L 03/13/17 11:00 Resp 20 03/13/17 11:00 BP 162/81 03/13/17 11:00 Pulse Ox 95 03/13/17 11:00 Constitutional: Present: Middle aged, Morbidly obese, Looks Older than stated age - in NAD ENT Exam: Present: pharynx normal, moist mucous membranes Eye Exam: bilateral eye: PERRL, EOMI Respiratory: Present: lungs clear, normal breath sounds. Absent: no accessory muscle use Cardiovascular/Chest: Present: regular rate, rhythm. Absent: tachycardia, systolic murmur Peripheral Pulses: carotid (R): 2+, carotid (L): 2+ Abdomen: Present: Normal bowel sounds, soft, nondistended - very mild tenderness in LLQ,, no rebound tenderness - very obese /Rectal: Present: Exam deferred Extremity: Present: normal range of motion, non-tender Skin Exam: Present: normal color, warm/dry Neurologic: Present: alert, oriented x 3 Eye contact: Present: cooperative, good eye contact Diagnostic Studies: Laboratory Tests 03/13/17 06:15 WBC 9.1 Hgb 13.7 Hct 40.1 L Plt Count 187 03/13/17 06:15 Plasma Sodium 138 Potassium 4.0 Chloride 102 Carbon Dioxide 28.0 BUN 15 Creatinine 1.16 Est GFR (Non-Af Amer) 68 Calcium Adj for Albumin 9.3 Total Bilirubin 0.3 AST 48 ALT 65 Alkaline Phosphatase 86 Total Protein 7.2 Albumin 3.6 Amylase 23 L Lipase 40 L 03/13/17 10:06 Lactic Acid, Venous 0.9 C-Reactive Prot, Quant 1.[address] ABDOMEN/PELVIS W/C: 03/13/2017: IMPRESSION: 1. Minimal stranding of the fat adjacent to the sigmoid colon, affected by diverticular pouchings. Consider mild diverticulitis or colitis. 2. Borderline measurement of the appendix but otherwise unremarkable without definite inflammatory changes. 3. Hepatomegaly with fatty infiltration of the liver. 4. No definite imaging signs of acute pancreatitis her complication of pancreatitis. 5. Potential mild cardiac enlargement. 6. Diastases of the rectal abdominal muscles muscle with ventral hernia located at the level of the umbilicus containing omental fat. 7. DJD of the thoracolumbar spine and bilateral hips. Assessment/Plan - Narrative Narrative: 1. Mild diverticulitis: Start cefoxitin 2 g IV Q6H. Keep patient NPO. IV fluids. pain medications. 2. T2 DM: Decrease Novolog 70/30 from 50 units SQ BID to Lantus SQ 30 units BID with coverage with humalog. 3 . Hypertension: Continue lisinopril 10 mg PO BID. 4. Neuropathy: Continue gabapentin 600 mg PO TID. 5. LUCI: Continue CPAP settings at home. 6.Obesity: BMi-38.0 stable.
[2017-03-13] MEDS: HYDROmorphone HCL 1 MG/ML DISP.SYRIN IV PRN ×2 (17:04→23:01)
[2017-03-13] MEDS: CEFOXITIN SODIUM 2 GM in DEXTROSE 5 % IN WATER 100 ML IV SCH ×2 (17:04)
[2017-03-13] MEDS: INSULIN LISPRO 100 UNITS/ML VIAL SC SCH ×2 (17:05→20:15)
[2017-03-13] MEDS: INSULIN GLARGINE,HUM.REC.ANLOG 100 UNITS/ML VIAL SC SCH (20:16)
[2017-03-13] MEDS: LISINOPRIL 10 MG TABLET PO SCH (21:09)
[2017-03-14] MEDS ORDERED: HYDROcodone/ACETAMINOPHEN 1 EACH TABLET PO PRN (01:12)
[2017-03-14] MEDS: CEFOXITIN SODIUM 2 GM in DEXTROSE 5 % IN WATER 100 ML IV SCH ×4 (01:56→09:17)
[2017-03-14] MEDS: HYDROmorphone HCL 1 MG/ML DISP.SYRIN IV PRN (05:08)
[2017-03-14 06:51] VITALS: BP 144/90
[2017-03-14] MEDS ORDERED: LEVOTHYROXINE SODIUM 125 MCG TABLET PO SCH (07:00)
[2017-03-14] MEDS: INSULIN LISPRO 100 UNITS/ML VIAL SC SCH ×2 (07:06→12:06)
[2017-03-14] MEDS: DEXTROSE 5%-NORMAL SALINE 1,000 ML IV PRN (07:10)
[2017-03-14] MEDS: LISINOPRIL 10 MG TABLET PO SCH (09:16)
[2017-03-14] MEDS: INSULIN GLARGINE,HUM.REC.ANLOG 100 UNITS/ML VIAL SC SCH (09:17)
[2017-03-14] MEDS ORDERED: GABAPENTIN 600 MG TABLET PO SCH (10:00)
[2017-03-14] MEDS ORDERED: ACETAMINOPHEN 500 MG TABLET PO PRN ×2 (10:52→11:00)
--- NOTE | 2017-03-14 14:16 | DS ---
(1) Diverticulitis large intestine Diagnosis(s): Presumed Problem: Acute Qualifiers: Diverticulitis complication: without perforation or abscess (2) Hypertension Problem: Chronic Qualifiers: Hypertension type: essential hypertension Qualified Code(s): I10 - Essential (primary) hypertension (3) Hypothyroidism Problem: Chronic Qualifiers: Hypothyroidism type: unspecified Qualified Code(s): E03.9 - Hypothyroidism , unspecified (4) Sleep apnea Problem: Chronic Qualifiers: Sleep apnea type: obstructive Qualified Code(s): G47.33 - Obstructive sleep apnea (adult) (pediatric) (5) Diabetes mellitus type 2, uncontrolled Problem: Chronic Qualifiers: Diabetes mellitus complication status: with hyperglycemia Diabetes mellitus fci insulin use: with ferry terminal agent use Qualified Code(s): E11.65 - Type 2 diabetes mellitus with hyperglycemia; Z79.4 - care home (current) use of insulin (6) Obesity Diagnosis(s): BMi-38.0 Problem: Chronic Qualifiers: Obesity type: unspecified obesity type Description of Stay: DATE OF ADMISSION: 03/13/2017. DATE OF DISCHARGE: 03/14/2017. DIAGNOSTICS: CT ABDOMEN/PELVIS W/C 03/13/17. DISCHARGE SUMMARY: Patient is a 62-year-old WM with a H/O T2DM, HTN, HLD, neuropathy, hypothyroidism, obesity with a BMI of 38.0, LUCI with CPAP who came to the ER because of LLQ pain for the 7-10 days. He was in the ER on 03/11/2017 and was prescribed ciprofloxacin and metronidazole. Patient felt there was no improvement in his pain which prompted him to come today. CT revealed minimal stranding of the fat adjacent to the sigmoid colon affected by diverticular outpouchings. WBC 9.1, lactic acid 0.9, CRP 1.9. Patient was admitted into observation for overnight antibiotics. The pain was located much higher over the left flank at times. The patient was treated with cefoxitin 2 g IV Q8H with improvement. Complete course of antibiotics [ ciprofloxacin and metronidazole given to you on 03/11/17] in the ER. The patient was discharged in a stable condition on 03/13/17. He is advised to stay on a low fiber diet for the next 7-10 days and gradually introduce high- fiber foods. More than 35 minutes was spent discussing diet, treatment options, prognosis, reconciliation of medications, plan of care, progression and dictation of discharge summary. Procedures Performed: none Results and Findings: Laboratory Tests 03/13/17 06:15 WBC 9.1 Hgb 13.7 Hct 40.1 L Plt Count 187 03/13/17 06:15 Plasma Sodium 138 Potassium 4.0 Chloride 102 Carbon Dioxide 28.0 BUN 15 Creatinine 1.16 Est GFR (Non-Af Amer) 68 Random Glucose 162 H Calcium Adj for Albumin 9.3 Total Bilirubin 0.3 AST 48 ALT 65 Alkaline Phosphatase 86 Total Protein 7.2 Albumin 3.6 Amylase 23 L Lipase 40 L 03/13/17 10:06 ESR 10 Lactic Acid, Venous 0.9 C-Reactive Prot, Quant 1.9 H 03/13/17 06:00 Urine pH 6.0 Ur Specific Wilkinson 1.020 Urine Blood Negative Urine Nitrate Negative Ur Leukocyte Esterase Negative Urine WBC None seen Urine Bacteria None seen CT ABDOMEN/PELVIS W/C: 03/13/2017: IMPRESSION: 1. Minimal stranding of the fat adjacent to the sigmoid colon, affected by diverticular pouchings. Consider mild diverticulitis or colitis. 2. Borderline measurement of the appendix but otherwise unremarkable without definite inflammatory changes. 3. Hepatomegaly with fatty infiltration of the liver. 4. No definite imaging signs of acute pancreatitis or complication of pancreatitis. 5. Potential mild cardiac enlargement. 6. Diastases of the rectal abdominal muscles muscle with ventral hernia located at the level of the umbilicus containing omental fat. 7. DJD of the thoracolumbar spine and bilateral hips. Discharge Disposition: Home self care Disposition: Home self-care Condition: Fair Discharge Diet: Consistent carbs Referrals: Raf Martell MD [Primary Care Provider] - Problem Oriented Discharge Instructions to Patient/Family: Diverticulitis, Easy -to-Read Additional Patient Instructions (free text): Stay on a liquid diet on 03/14/2017 and 03/15/2017. Start a low fiber diet on 03/16/17. Patient to stay on a low fiber diet till completion of antibiotics. Gradually introduce one item of high-fiber foods into diet after 1 week every 1- 2 days till on a high-fiber diet. Eat plain yogurt 4 ounces twice a day. Appt with PCP in 2.[address] Martell - SaturdayMarch 29 at 9:30 am Complete Home Medications List: Complete Home Medication List: Aspirin [Low Dose Aspirin EC] 81 mg PO DAILY 12/20/16 Gabapentin [Neurontin] 600 mg PO TID 12/20/16 Insulin Aspart Prot/Insuln Asp [Novolog Mix 70/30] 50 units SQ BID 12/20/16 Levothyroxine Sodium [Synthroid] 125 mcg PO DAILY 12/20/16 Lisinopril [Zestril] 10 mg PO BID 03/13/17
== END 2017-03-14 15:30 | disposition home or self-care (01) ==
LOC: ER 04:47 → MS 10:01
PROVIDERS: ADMIT Internal Medicine; ATTEND Internal Medicine
DX: K57.32 Diverticulitis of large intestine without perforation or abscess without bleeding (principal); E11.40 Type 2 diabetes mellitus with diabetic neuropathy, unspecified; Z79.4 Long term (current) use of insulin; I10 Essential (primary) hypertension; E78.5 Hyperlipidemia, unspecified; E03.9 Hypothyroidism, unspecified; E66.9 Obesity, unspecified; Z68.38 Body mass index [BMI] 38.0-38.9, adult; G47.33 Obstructive sleep apnea (adult) (pediatric)
CPT/HCPCS: 36415; 74177; 80053; 81001; 82150; 83605; 83690; 85025; 85652; 86140; 94660; 96365; 96366; 96367; 96372; 96374; 96375; 96376; 99284; G0378; J2405

== ENCOUNTER 2017-03-18 09:25 | Emergency (ER) | payer MEDICARE ==
--- NOTE | 2017-03-18 10:35 | ERNOTE ---
Integumentary HPI - Narrative Date of Service: 03/18/17 - General Presenting Symptoms: rash Time Seen by Provider: 03/18/17 10:16 Source: patient, RN notes reviewed Exam Limitations: no limitations - Immun/Allergies/Home Medications Immunizations: IMMUNIZATION HX Immunizations Up to Date Yes History of Influenza Vaccine No Hx Pneumococcal Vaccination Yes Allergies/Adverse Reactions: Allergies Allergy/AdvReac Type Severity Reaction Status Date / Time No Known Allergies Allergy Verified 03/18/17 09:52 Home Medications: HOME MEDICATIONS Aspirin [Low Dose Aspirin EC] 81 mg PO DAILY 12/20/16 [Last Taken 03/12/17 09:00 ] Gabapentin [Neurontin] 600 mg PO TID 12/20/16 [Last Taken 03/12/17 21:00] Insulin Aspart Prot/Insuln Asp [Novolog Mix 70/30] 50 units SQ BID 12/20/16 [ Last Taken 03/12/17 21:00] Levothyroxine Sodium [Synthroid] 125 mcg PO DAILY 12/20/16 [Last Taken 03/12/17 09:00] Lisinopril [Zestril] 10 mg PO BID 03/13/17 [Last Taken 03/12/17 21:00] Amox Tr/Potassium Clavulanate [Augmentin 875-125 Tablet] 875 mg PO BID #14 tablet 03/14/17 [Last Taken Unknown] Acyclovir 800 mg PO 5XD #35 tablet 03/18/17 [Last Taken Unknown] oxyCODONE HCL/ACETAMINOPHEN [Oxycodone-Acetaminophen 5-325] 1 each PO Q6H PRN # 20 tablet 03/18/17 [Last Taken Unknown] - History of Present Illness Narrative: 62 y/o male ambulatory to the ED for a rash. He reports that his PCP is out of the office today. He was hospitalized for diverticulitis and discharged on . He had been having pain in the left upper quadrant and left flank while in the hospital and then noticed a blistering rash on his abdomen 2 days ago. He has been taking Tramadol for pain without relief. He is still on Augmentin for the diverticulitis. Date (Duration): 03/16/17 Location: Reports: torso Quality: Reports: painful, burning Severity: moderate Exposure: Reports: other Associated Symptoms: Reports: blisters, rash. Denies: hives, swelling/mass/ lumps, edema, fever Prior Treatment: Reports: recently seen, treated by physician, recently hospitalized, currently on antibiotics Review of Systems - Review of Systems Constitutional: Present: recent illness. Absent: fever, chills EYE: Present: no symptoms reported ENT: Present: no symptoms reported Respiratory: Absent: shortness of breath, cough Cardiology: Absent: chest pain, edema Gastrointestinal/Abdominal: Present: diarrhea. Absent: nausea, vomiting Genitourinary: Present: no symptoms reported Musculoskeletal: Absent: joint pain, joint swelling Skin: Present: rash, lesions. Absent: lumps Neurological: Absent: headache, dizziness/light-headedness, weakness, numbness Endocrine: Present: no symptoms reported Hematologic/Lymphatic: Present: no symptoms reported Psych: Present: no symptoms reported - Patient's Past Medical History Patient History - Medical: Diabetes Type 2 Insulin Dependent, Hypothyroidism Patient History - Cardiac/Respiratory: Hypertension, Hyperlipidemia, CPAP/BiPAP Home Use, Sleep Apnea Patient History - Cancer: No Hx of Cancer Patient History - Surgical Procedures: Other Patient History - Other: None - Family History Mother Family History - Medical: Family History - Cardiac/Respiratory: Myocardial Infarction Family History - Cancer: Leukemia Father Family History - Medical: , History Unknown - Social History Living Situations: spouse Abuse History: No History of abuse Psych History: No pertinent hx Smoking Status: Never smoker Have you smoked in the past 12 months: No Do you dip or chew tobacco: No Alcohol Use: none Drug Use: none - Immunizations Immunizations Up to Date: Yes Hx Pneumococcal Vaccination: Yes History of Influenza Vaccine: No Physical Exam - Physical Exam General Appearance: Present: wd/wn, alert, no apparent distress Neck: Present: normal inspection, nontender, supple, full range of motion Respiratory: Present: no respiratory distress, normal breath sounds, no accessory muscle use, lungs clear Cardiovascular/Chest: Present: regular rate, rhythm, no murmur, normal peripheral pulses Back Exam: Present: normal inspection, normal range of motion Extremity Exam: Present: normal inspection, normal range of motion, no edema Neurological Exam: Present: alert, oriented, normal mood/affect, no motor/ sensory deficits Skin Exam: Present: normal color, warm/dry, skin rash - Blistering eruption to left upper abdominal region ED Progress - Vital Signs Patient's Vital Signs:: I have reviewed the patient's vital signs. Vital Signs: Vital Signs 03/18/17 09:46 Temperature 37.4 C Pulse Rate 64 Respiratory 16 Rate Blood Pressure 162/98 O2 Sat by Pulse 96 Oximetry - Progress/Reassessment Chief Complaint: Rash Progress:: Unchanged Departure Clinical Impression: Shingles Qualifiers: Herpes zoster complications: without complications Qualified Code(s): B02.9 - Zoster without complications - Departure Disposition: Home Follow Up Needed Condition: Stable Instructions: Shinglsaima, [id number] Additional Instructions: Continue your current medications except the Tramadol You may need to take a laxative if your pain medication makes you constipated Consider getting the shingles vaccine 6 weeks after the rash resolves Prescriptions: Acyclovir 800 mg PO 5XD #35 tablet oxyCODONE HCL/ACETAMINOPHEN [Oxycodone-Acetaminophen 5-325] 1 each PO Q6H PRN # 20 tablet PRN Reason: Pain
[2017-03-18 10:43] VITALS: BP 142/88
== END 2017-03-18 10:45 | disposition home or self-care (01) ==
LOC: ER 09:25
DX: B02.9 Zoster without complications (principal); E11.9 Type 2 diabetes mellitus without complications; Z79.4 Long term (current) use of insulin; E03.9 Hypothyroidism, unspecified; I10 Essential (primary) hypertension; E78.5 Hyperlipidemia, unspecified

== ENCOUNTER 2017-03-26 06:33 | Emergency (ER) | payer MEDICARE ==
--- NOTE | 2017-03-26 07:06 | ERNOTE ---
Integumentary HPI - General Presenting Symptoms: rash - with pain Time Seen by Provider: 03/26/17 06:50 Source: patient Exam Limitations: no limitations - Immun/Allergies/Home Medications Immunizations: IMMUNIZATION HX Immunizations Up to Date Yes History of Influenza Vaccine Yes Hx Pneumococcal Vaccination Yes Allergies/Adverse Reactions: Allergies Allergy/AdvReac Type Severity Reaction Status Date / Time No Known Allergies Allergy Verified 03/26/17 06:44 Home Medications: HOME MEDICATIONS Aspirin [Low Dose Aspirin EC] 81 mg PO DAILY 12/20/16 [Last Taken 03/12/17 09:00 ] Gabapentin [Neurontin] 600 mg PO TID 12/20/16 [Last Taken 03/12/17 21:00] Insulin Aspart Prot/Insuln Asp [Novolog Mix 70/30] 50 units SQ BID 12/20/16 [ Last Taken 03/12/17 21:00] Levothyroxine Sodium [Synthroid] 125 mcg PO DAILY 12/20/16 [Last Taken 03/12/17 09:00] Lisinopril [Zestril] 10 mg PO BID 03/13/17 [Last Taken 03/12/17 21:00] Acyclovir 800 mg PO 5XD #35 tablet 03/18/17 [Last Taken Unknown] oxyCODONE HCL/ACETAMINOPHEN [Oxycodone-Acetaminophen 5-325] 1 each PO Q6H PRN # 20 tablet 03/18/17 [Last Taken Unknown] HYDROcodone/ACETAMINOPHEN [Hydrocodon-Acetaminophen 5-325] 1 each PO QID PRN # 15 tablet 03/26/17 [Last Taken Unknown] - History of Present Illness Narrative: Pt was seen in this hospital 2 weeks ago for diverticulitis. Upon being discharged he c/o pain on his left side without rash. The next day he found a rash and came back to the ED. he was diagnosed with shingles and given acyclovir and norco. He is out of his pain medication and continues to have pain. He has one more day of acyclovir. Location: Reports: torso Quality: Reports: painful Severity: moderate, severe Exposure: Reports: other - shingles Modifying Factors - (Improves): Reports: other - pain medication helps somewhat Associated Symptoms: Reports: rash Review of Systems - Review of Systems Constitutional: Present: recent illness. Absent: fever EYE: Present: no symptoms reported ENT: Present: no symptoms reported Respiratory: Absent: shortness of breath Cardiology: Absent: chest pain Gastrointestinal/Abdominal: Absent: nausea, vomiting Genitourinary: Present: no symptoms reported Musculoskeletal: Present: back pain, muscle pain Skin: Present: rash Neurological: Absent: numbness, tingling Endocrine: Present: no symptoms reported Hematologic/Lymphatic: Present: no symptoms reported Psych: Present: no symptoms reported - Patient's Past Medical History Patient History - Medical: Diabetes Type 2 Insulin Dependent, Hypothyroidism, Other - diverticulitis, Shingles Patient History - Cardiac/Respiratory: Hypertension, Hyperlipidemia, CPAP/BiPAP Home Use, Sleep Apnea Patient History - Cancer: No Hx of Cancer Patient History - Surgical Procedures: Other Patient History - Other: None - Family History Mother Family History - Medical: Family History - Cardiac/Respiratory: Myocardial Infarction Family History - Cancer: Leukemia Father Family History - Medical: , History Unknown - Social History Living Situations: home Abuse History: No History of abuse Psych History: No pertinent hx Smoking Status: Never smoker Alcohol Use: none Drug Use: none - Immunizations Immunizations Up to Date: Yes Hx Pneumococcal Vaccination: Yes History of Influenza Vaccine: Yes Physical Exam - Physical Exam General Appearance: Present: wd/wn, alert, no apparent distress Neck: Present: normal inspection, nontender, supple Respiratory: Present: no respiratory distress, no accessory muscle use Back Exam: Present: normal range of motion, no CVA tenderness, no vertebral tenderness Extremity Exam: Present: non-tender, normal range of motion Neurological Exam: Present: alert, oriented, normal mood/affect Skin Exam: Present: warm/dry, other - dried lesions on the left lower chest in the mid clavicular line approx rib 7-8 ED Progress - Vital Signs Vital Signs: Vital Signs 03/26/17 06:36 Temperature 36.5 C Pulse Rate 61 Respiratory 16 Rate Blood Pressure 147/76 O2 Sat by Pulse 97 Oximetry - Progress/Reassessment Chief Complaint: Rash Departure Clinical Impression: Shingles Qualifiers: Herpes zoster complications: with nervous system involvement 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 Thondapu as scheduled. The shot given today might increase your blood sugars, talk to Dr. Martell about any changes to your medication to compensate for that if necessary. Take pain medications as needed Referrals: Raf Martell MD [Primary Care Provider] - Prescriptions: HYDROcodone/ACETAMINOPHEN [Hydrocodon-Acetaminophen 5-325] 1 each PO QID PRN # 15 tablet PRN Reason: Pain
[2017-03-26] MEDS ORDERED: DEXAMETHASONE SOD PHOSPHATE 10 MG/ML VIAL IM ONE (07:07)
[2017-03-26] MEDS ORDERED: METHYLPREDNISOLONE ACETATE 80 MG/ML VIAL IM ONE (07:07)
[2017-03-26] MEDS ORDERED: DEXAMETHASONE SOD PHOSPHATE 10 MG/ML VIAL ONE (07:10)
[2017-03-26] MEDS ORDERED: METHYLPREDNISOLONE ACETATE 80 MG/ML VIAL ONE (07:10)
[2017-03-26 07:20] VITALS: BP 180/87
== END 2017-03-26 07:21 | disposition home or self-care (01) ==
LOC: ER 06:33
DX: B02.23 Postherpetic polyneuropathy (principal); E11.9 Type 2 diabetes mellitus without complications; I10 Essential (primary) hypertension

== ENCOUNTER 2017-04-03 20:10 | Emergency (ER) | payer MEDICARE ==
--- NOTE | 2017-04-03 21:21 | ERNOTE ---
Integumentary HPI - Narrative Date of Service: 04/03/17 - General Presenting Symptoms: other - Cellulitis Time Seen by Provider: 04/03/17 20:53 Source: patient, family, RN notes reviewed, old records Exam Limitations: no limitations - Immun/Allergies/Home Medications Immunizations: IMMUNIZATION HX Immunizations Up to Date Yes History of Influenza Vaccine Yes Hx Pneumococcal Vaccination Yes Allergies/Adverse Reactions: Allergies Allergy/AdvReac Type Severity Reaction Status Date / Time No Known Allergies Allergy Verified 04/03/17 20:33 Home Medications: HOME MEDICATIONS Aspirin [Low Dose Aspirin EC] 81 mg PO DAILY 12/20/16 [Last Taken 03/12/17 09:00 ] Gabapentin [Neurontin] 600 mg PO TID 12/20/16 [Last Taken 03/12/17 21:00] Insulin Aspart Prot/Insuln Asp [Novolog Mix 70/30] 50 units SQ BID 12/20/16 [ Last Taken 03/12/17 21:00] Levothyroxine Sodium [Synthroid] 125 mcg PO DAILY 12/20/16 [Last Taken 03/12/17 09:00] Lisinopril [Zestril] 10 mg PO BID 03/13/17 [Last Taken 03/12/17 21:00] oxyCODONE HCL/ACETAMINOPHEN [Oxycodone-Acetaminophen 5-325] 1 each PO Q6H PRN # 20 tablet 03/18/17 [Last Taken Unknown] HYDROcodone/ACETAMINOPHEN [Hydrocodon-Acetaminophen 5-325] 1 each PO QID PRN # 15 tablet 03/26/17 [Last Taken Unknown] Cephalexin 500 mg PO QID #40 tab 04/03/17 [Last Taken Unknown] - History of Present Illness Narrative: 62 y/o male ambulatory to the ED for redness and induration in his right deltoid region that began a couple of days ago and has been getting worse. He was seen here on 03/18 and diagnosed with shingles. He returned on 03/26 for ongoing pain and was given IM Decadron in the right deltoid. He denies fevers or chills but states he feels "sickly." Quality: Reports: painful Exposure: Reports: no cause identified Associated Symptoms: Reports: change in skin texture, swelling/mass/lumps. Denies: blisters, hives Prior Treatment: Reports: recently seen. Denies: currently on antibiotics Review of Systems - Review of Systems Constitutional: Present: fatigue, malaise. Absent: fever, chills EYE: Present: no symptoms reported ENT: Present: no symptoms reported Respiratory: Absent: shortness of breath, cough Cardiology: Absent: chest pain, syncope Gastrointestinal/Abdominal: Absent: nausea, vomiting, abdominal pain Genitourinary: Present: no symptoms reported Musculoskeletal: Absent: joint pain, joint swelling Skin: Present: lumps, change in color. Absent: rash, lesions Neurological: Absent: weakness, numbness, tingling Endocrine: Present: no symptoms reported Hematologic/Lymphatic: Present: no symptoms reported Psych: Present: no symptoms reported - Patient's Past Medical History Patient History - Medical: Diabetes Type 2 Insulin Dependent, Hypothyroidism, Other Patient History - Cardiac/Respiratory: Hypertension, Hyperlipidemia, CPAP/BiPAP Home Use, Sleep Apnea Patient History - Cancer: No Hx of Cancer Patient History - Surgical Procedures: Other Patient History - Other: None - Family History Mother Family History - Medical: Family History - Cardiac/Respiratory: Myocardial Infarction Family History - Cancer: Leukemia Father Family History - Medical: , History Unknown - Social History Living Situations: spouse Abuse History: No History of abuse Psych History: No pertinent hx Smoking Status: Former smoker Alcohol Use: none Drug Use: none - Immunizations Immunizations Up to Date: Yes Hx Pneumococcal Vaccination: Yes History of Influenza Vaccine: Yes Physical Exam - Physical Exam General Appearance: Present: wd/wn, alert, other - In no acute distress but appears to not feel well Neck: Present: normal inspection, nontender, supple, full range of motion Respiratory: Present: no respiratory distress, normal breath sounds, no accessory muscle use, lungs clear Cardiovascular/Chest: Present: regular rate, rhythm, no murmur, normal peripheral pulses Extremity Exam: Present: normal except - - erythema/edema to right deltoid. Absent: joint redness, joint swelling, extremity edema Neurological Exam: Present: alert, oriented, normal mood/affect, no motor/ sensory deficits Skin Exam: Present: warm/dry, skin rash - crusted zoster rash on left upper abdomen/flank, erythema/induration/edema/warmth to right deltoid region - skin is intact ED Progress - Results and Orders Patient's Lab Results:: I have reviewed the patient's lab results. - Vital Signs Patient's Vital Signs:: I have reviewed the patient's vital signs. Vital Signs: Vital Signs 04/03/17 20:28 Temperature 36.8 C Pulse Rate 84 Respiratory 16 Rate Blood Pressure 156/74 O2 Sat by Pulse 99 Oximetry - Progress/Reassessment Chief Complaint: Cellulitis Progress:: Unchanged Plan - Plan Plan: WBC is very elevated at 17,500. Patient did receive Kenalog and Decadron 8 days ago. The elevation may be at least partially d/t the steroids. His blood glucose is also over 400, which could be steroid related as well, but the patient has not yet taken his evening dose of insulin. Discussed treating his cellulitis as an inpatient but the patient does not wish to be hospitalized as he was inpatient last month for diverticulitis. Will treat as outpatient with Keflex for now as patient is afebrile and no having nausea/vomiting, but reinforced need to return if his symptoms worsen. Patient and spouse in agreement with plan. Departure Clinical Impression: Cellulitis of right upper extremity - Departure Disposition: Home Follow Up Needed Condition: Stable Instructions: Cellulitis, Adult, [id number] Additional Instructions: Use warm, moist compresses on sore area Take your insulin as directed when you get home Return for fever, vomiting, or other worsening symptoms Referrals: Raf Martell MD [Primary Care Provider] - Prescriptions: Cephalexin 500 mg PO QID #40 tab
[2017-04-03 21:30] LABS: Hematocrit 42.4 % (42.0-52.0); Hemoglobin 14.6 gm/dL (13.5-18.0); Mean Cell Volume 88.3 fl (78-100); Mean Corpuscular Hemoglobin 30.4 pg (27-31); Mean Corpuscular Hgb Conc 34.4 g/dl (32-36); Mean Platelet Volume 10.1 fl (6.0-9.5); Neutrophil # 11.3 K/mm3 (1.3-6.0); Neutrophil % 64.3 % (42-75.0); Platelet Count 273 K/mm3 (150-450); Red Cell Distribution Width 13.2 % (11.5-14.0); White Blood Count 17.5 K/mm3 (4.0-10.5)
[2017-04-03 21:50] LABS: Albumin * 3.4 gm/dl (3.4-5.0); Anion Gap 11.4 mmol/L (6.8-13.8); BUN/Creatinine Ratio 11.7 (9.0-21.6); Bilirubin, Total 0.3 mg/dL (0.0-1.1); Ca. Corrected For Albumin 9.5 mg/dL (8.4-10.2); Calcium * 9.3 mg/dL (7.9-10.9); Potassium 4.4 mmol/L (3.4-4.6); Total Protein 8.1 gm/dL (6.2-8.2)
[2017-04-03] MEDS ORDERED: CEPHALEXIN MONOHYDRATE 250 MG CAPSULE PO ONE (22:02)
[2017-04-03] MEDS ORDERED: CEPHALEXIN MONOHYDRATE 250 MG CAPSULE ONE ×2 (22:04→22:05)
[2017-04-03 22:59] VITALS: BP 155/74
== END 2017-04-03 22:20 | disposition home or self-care (01) ==
LOC: ER 20:10
DX: L03.113 Cellulitis of right upper limb (principal); E11.9 Type 2 diabetes mellitus without complications; Z79.4 Long term (current) use of insulin; E03.9 Hypothyroidism, unspecified; I10 Essential (primary) hypertension; Z87.891 Personal history of nicotine dependence